=== PATIENT | female | born 1995 | race Two or more races ===

== ENCOUNTER 2018-03-15 15:40 | Inpatient (IN) | payer MEDICAID ==
[~2018-03-15] VITALS: Ht 144.8 cm; Wt 45.8 kg
[2018-03-15 15:50] VITALS: BP 131/72
--- NOTE | 2018-03-15 15:55 | NUR ---
RT NOTE: PATIENT RECEIVED TRACHED AND PLACED ON SPIRIT VENT. VENT SETTINGS PER MD ORDER. ALARMS SET AND VERIFIED. SUCTIONED AND LAVAGED SMALL AMOUNT OF THICK SECRETIONS. VENT PLUGGED INTO A RED OUTLET. AMBU BAG AT [facility].
[2018-03-15] MEDS ORDERED: ACET650S26 GT (15:59)
[2018-03-15] MEDS ORDERED: INSU100V11 SQ (15:59)
[2018-03-15] MEDS ORDERED: METO25TA20 GT (15:59)
[2018-03-15] MEDS ORDERED: NUT.237L30 GT (15:59)
[2018-03-15] MEDS ORDERED: ACET-868 GT ×2 (15:59)
[2018-03-15] MEDS ORDERED: SORB30SO2 GT (15:59)
[2018-03-15] MEDS ORDERED: ACET-2605 GT (15:59)
[2018-03-15] MEDS ORDERED: IPRA0.2S9 IH ×2 (15:59)
[2018-03-15] MEDS ORDERED: BLOO-668 IN (15:59)
[2018-03-15] MEDS ORDERED: ASCO500T9 GT (15:59)
[2018-03-15] MEDS ORDERED: ZINC220C8 GT (15:59)
[2018-03-15] MEDS ORDERED: GLYC1TAB5 GT (15:59)
[2018-03-15] MEDS ORDERED: MULT-24 GT (15:59)
[2018-03-15] MEDS ORDERED: VALP250S4 GT (15:59)
[2018-03-15] MEDS ORDERED: DOCU50LI GT (15:59)
[2018-03-15] MEDS ORDERED: SIME80TA15 GT (15:59)
[2018-03-15] MEDS ORDERED: PHEN20EL5 GT (15:59)
[2018-03-15] MEDS ORDERED: IV NS 0.9% 1,000 ML BAG IV ONE (16:00)
[2018-03-15 16:22] LABS: BASOPHILS % (AUTO) 0.5 % (0.0-2.0); EOSINOPHILS % (AUTO) 5.3 % (0.0-6.0); HEMATOCRIT 23 % (33-45); HEMOGLOBIN 7.3 g/dL (11.5-14.8); LYMPHOCYTES # (AUTO) 1.9 /CMM (0.8-4.8); MEAN CORPUSCULAR HEMOGLOBIN 30 PG (26.0-33.0); MEAN CORPUSCULAR HGB CONC 33 g/dl (31.0-36.0); MEAN CORPUSCULAR VOLUME 92 fL (82-100); MONOCYTES # (AUTO) 0.4 /CMM (0.1-1.30); MONOCYTES % (AUTO) 4.5 % (2.0-12.0); NEUTROPHILS # (AUTO) 5.5 /CMM (1.8-8.9); NEUTROPHILS % (AUTO) 66.7 % (43.0-81.0); PLATELET COUNT (AUTO) 314 /CMM (150-450); RDW COEFFICIENT OF VARIATION 18.6 (11.5-15.0); RED BLOOD CELL COUNT(AUTO) 2.44 MIL/uL (4.0-5.2); WHITE BLOOD COUNT (AUTO) 8.3 K/uL (4.3-11.0)
[2018-03-15 16:24] LABS: BILIRUBIN,URINE NEGATIVE (NEGATIVE); BLOOD, URINE TRACE Ery/uL (NEGATIVE); COLOR,URINE YELLOW (YELLOW); KETONES,URINE NEGATIVE (NEGATIVE); LEUKOCYTE ESTERASE ,URINE 1+ (NEGATIVE); NITRITE, URINE NEGATIVE (NEGATIVE); PROTEIN,URINE 2+ mg/dl (NEGATIVE); UGLUCOSE NEGATIVE (NEGATIVE); UROBILINOGEN,URINE 0.2 EU/dL (0.2)
--- NOTE | 2018-03-15 16:25 | NUR ---
SHONDA FROM [facility] FOR LOW HEMOGLOBIN 6.9. PT SEEN & EVAL'D BY DR. LEDBETTER. PT OPEN EYES, WILL MOVE HEAD WHEN CALLED BY HER FIRST NAME, PLACED ON VENT, NO RESP DISTRESS NOTED. SKIN WARM DRY & INTACT. PT STABLE NAD NOTED & WILL CONT TO MONITOR
[2018-03-15 16:26] LABS: APPEARANCE,URINE SLIGHTLY CLOUDY (CLEAR)
[2018-03-15 16:37] LABS: ALANINE AMINOTRANSFERASE 23 U/L (12-78); ALBUMIN 3.1 g/dL (3.4-5.0); ALKALINE PHOSPHATASE 61 U/L (46-116); ASPARTATE AMINOTRANSFERASE 16 U/L (15-37); BILIRUBIN,DIRECT 0.1 mg/dL (0.0-0.2); BILIRUBIN,TOTAL 0.3 mg/dL (0.2-1.0); CALCIUM, SERUM 9.5 mg/dL (8.5-10.1); CARBON DIOXIDE 30 mmol/L (21-32); CHLORIDE 98 mmol/L (98-107); CREATININE 1.9 mg/dL (0.6-1.3); GLUCOSE 111 mg/dL (74-106); POTASSIUM 3.6 mmol/L (3.5-5.1); SODIUM SERUM 135 mmol/L (136-145); UREA NITROGEN, BLOOD 41 mg/dL (7-18)
[2018-03-15 16:39] LABS: TROPONIN I < 0.017 ng/mL (0.00-0.056)
[2018-03-15 16:49] LABS: INR 0.99 (0.87-1.13)
[2018-03-15 16:57] LABS: BACTERIA,URINE Few /HPF (None Seen); RBC,URINE 0-2 /HPF (0-2); SQUAMOUS EPITHELIAL CELL,UR Few /HPF (None Seen)
--- NOTE | 2018-03-15 17:08 | NUR ---
CALLED [employer] TRANSMITTER TESTER WAS PAGED.
[2018-03-15 17:14] VITALS: BP 131/72
[2018-03-15] MEDS ORDERED: CEFTRIAXONE 1 G in IV D5W 50 ML IV ONE (17:30)
[2018-03-15 19:00] VITALS: BP 105/49
--- NOTE | 2018-03-15 19:00 | NUR ---
MANAGER TRAINING NOTES: PT WAS ADMITTED FROM ER WITH A DIAGNOSIS OF ACUTE ANEMIA. PT IS NON VERBAL BUT OPENS EYES. ON [facility] VENT, [place] 7, SATURATING WELL. NO SOB NOTED. ON TELE MONITOR SINUS TACHY HR 114BPM. NO FACIAL GRIMACING OR ANY SIGNS OF PAIN NOTED. VITAL SIGNS STABLE, BP 105/49, HR 114BPM, RR 20, TEMP 98.1. WILL ENDORSE TO CUTTING AND PRINTING MACHINE OPERATOR FOR CONTINUITY OF CARE.
--- NOTE | 2018-03-15 19:00 | NUR ---
NETWORK SECURITY ADMINISTRATOR NOTES: RECEIVED A CALL FROM LAB ([facility]IR[facility]) INFORMING THAT PT HAS AN ORDER FOR 1 UNIT PRBC, HOWEVER, PT HAS ANTIBODY AND LAB NEEDS TO SEND ADDITIONAL WORKUP TO [facility] TO IDENTIFY WHAT KIND OF ANTIBODY THE PT HAS. THUS, BLOOD PRODUCT WILL BE DELAYED. WILL ENDORSE TO FITTING ROOM ASSOCIATE RN
[2018-03-15] MEDS ORDERED: MAGNESIUM HYDROXIDE 30 ML UDC PO PRN (19:30)
[2018-03-15] MEDS ORDERED: MISCELLANEOUS MED 1 EA EA GT PRN (19:30)
[2018-03-15] MEDS ORDERED: MAG HYDROX/AL HYDROX/SIMETH 30 ML UDC PO PRN (19:30)
[2018-03-15] MEDS ORDERED: ACETAMINOPHEN 325 MG TABLET PO PRN ×2 (19:30)
[2018-03-15] MEDS ORDERED: ONDANSETRON HCL/PF 4 MG/2 ML VIAL IVP PRN (19:30)
[2018-03-15] MEDS ORDERED: HYDROCODONE/APAP 5/325MG 1 EACH TABLET PO PRN (19:30)
[2018-03-15] MEDS ORDERED: ZOLPIDEM TARTRATE 5 MG TABLET PO PRN (19:30)
[2018-03-15] MEDS ORDERED: IPRATROPIUM NEB FS 0.5 MG/2.5 ML AMPUL.NEB IH PRN (19:30)
[2018-03-15 20:00] VITALS: BP 104/50
--- NOTE | 2018-03-15 20:00 | NUR ---
RN INITIAL NOTES: RECEIVED PT IN BED. PT IS NON VERBAL BUT OPENS EYES. [facility], SATURATING WELL. NO SOB NOTED. ON TELE MONITOR SINUS TACHY HR 110- 140 BPM. IV IN LEFT LOWER LEG 318 S/L. G TUBE IN PLACE. NO DISTRESS NOTED. ALL SAFETY PRECAUTIONS TAKEN, BED IN LOWEST LOCKED POSITION, CALL LIGHT IN REACH ,WILL CARE OUT ALL ADMISSION ORDERS. WILL CONT TO MONITOR.
[2018-03-15] MEDS: IPRATROPIUM NEB FS 0.5 MG/2.5 ML AMPUL.NEB IH SCH (20:19)
[2018-03-15] MEDS: SIMETHICONE 80 MG TAB.CHEW GT SCH (21:46)
[2018-03-15] MEDS: VALPROIC ACID 250 MG/5 ML UDC GT SCH (21:46)
[2018-03-15] MEDS: METOPROLOL TARTRATE 25 MG TABLET GT SCH (21:47)
[2018-03-15] MEDS: PHENOBARBITAL 60 MG/15 ML UDC GT SCH (21:51)
[2018-03-15] MEDS: GLUCERNA 1.2 1,000 ML BOTTLE GT SCH (22:29)
[2018-03-15 23:10] LABS: BASOPHILS % (AUTO) 0.1 % (0.0-2.0); EOSINOPHILS % (AUTO) 4.4 % (0.0-6.0); HEMATOCRIT 22 % (33-45); HEMOGLOBIN 7.4 g/dL (11.5-14.8); LYMPHOCYTES # (AUTO) 1.7 /CMM (0.8-4.8); LYMPHOCYTES % (AUTO) 21.9 % (20.0-44.0); MEAN CORPUSCULAR HEMOGLOBIN 31 PG (26.0-33.0); MEAN CORPUSCULAR HGB CONC 34 g/dl (31.0-36.0); MEAN CORPUSCULAR VOLUME 93 fL (82-100); MONOCYTES # (AUTO) 0.4 /CMM (0.1-1.30); MONOCYTES % (AUTO) 5.1 % (2.0-12.0); NEUTROPHILS # (AUTO) 5.3 /CMM (1.8-8.9); NEUTROPHILS % (AUTO) 68.5 % (43.0-81.0); PLATELET COUNT (AUTO) 271 /CMM (150-450); RDW COEFFICIENT OF VARIATION 18.5 (11.5-15.0); RED BLOOD CELL COUNT(AUTO) 2.38 MIL/uL (4.0-5.2); WHITE BLOOD COUNT (AUTO) 7.8 K/uL (4.3-11.0)
[2018-03-16] VITALS (13 sets, daily range): BP systolic 94–108; BP diastolic 36–64
[2018-03-16] MEDS: IPRATROPIUM NEB FS 0.5 MG/2.5 ML AMPUL.NEB IH SCH ×4 (01:25→20:04)
[2018-03-16] MEDS: SIMETHICONE 80 MG TAB.CHEW GT SCH ×3 (05:13→21:04)
[2018-03-16] MEDS: BLOOD SUGAR DIAGNOSTIC 1 EACH STRIP IN SCH (05:19)
[2018-03-16 06:30] LABS: BASOPHILS % (AUTO) 0.5 % (0.0-2.0); EOSINOPHILS % (AUTO) 4.2 % (0.0-6.0); HEMATOCRIT 21 % (33-45); HEMOGLOBIN 7.1 g/dL (11.5-14.8); LYMPHOCYTES # (AUTO) 1.4 /CMM (0.8-4.8); LYMPHOCYTES % (AUTO) 19.4 % (20.0-44.0); MEAN CORPUSCULAR HEMOGLOBIN 32 PG (26.0-33.0); MEAN CORPUSCULAR HGB CONC 34 g/dl (31.0-36.0); MEAN CORPUSCULAR VOLUME 94 fL (82-100); MONOCYTES # (AUTO) 0.4 /CMM (0.1-1.30); MONOCYTES % (AUTO) 5.1 % (2.0-12.0); NEUTROPHILS % (AUTO) 70.8 % (43.0-81.0); PLATELET COUNT (AUTO) 275 /CMM (150-450); RDW COEFFICIENT OF VARIATION 18.8 (11.5-15.0); RED BLOOD CELL COUNT(AUTO) 2.24 MIL/uL (4.0-5.2); WHITE BLOOD COUNT (AUTO) 7.1 K/uL (4.3-11.0)
--- NOTE | 2018-03-16 06:43 | NUR ---
RN CLOSING NOTES: NO CHANGE IN PTS CONDITION OVER NIGHT. GT FEED INFUSING ORDERED. UNABLE TO TRANSFUSE 1 UNIT PRBC, ORDERED BECAUSE PT HAS ANTIBODY AND LAB SENT ADDITIONAL WORKUP TO [place] TO IDENTIFY WHAT KIND OF ANTIBODY THE PT HAS. THUS, BLOOD PRODUCT IS DELAYED. MD NOTIFIED OF THE DELAY. WILL ENDORSE TO AM SHIFT RN
[2018-03-16 06:49] LABS: CALCIUM, SERUM 8.9 mg/dL (8.5-10.1); CREATININE 1.8 mg/dL (0.6-1.3); MAGNESIUM 2.4 mg/dL (1.8-2.4); PHOSPHORUS 5.3 mg/dL (2.5-4.9); POTASSIUM 3.8 mmol/L (3.5-5.1)
--- NOTE | 2018-03-16 07:30 | NUR ---
STAFFING BRANCH MANAGER INITIAL NOTES RECEIVED PATIENT OBTUNDED IN BED, NO SIGNS OF DISTRESS, ON VENTILATOR SETTINGS ORDERED, 100% 02 SATURATION, ON TELE MONITORING ST, IN DIAPER, TURNED AND REPOSITIONED, GTUBE FEEDINGS ORDERED, NO RESIDUAL NOTED, HOB ELEVATED, IV LLE 18G, SL, CLEAN AND PATENT, AWAITING 1 UNIT PRBC TO TRANSFUSE, BED IN LOW AND LOCKED POSITION, CALL LIGHT WITHIN REACH, WILL CONTINUE TO MONITOR.
[2018-03-16] MEDS: SORBITOL SOLUTION 30 ML GT SCH (08:32)
[2018-03-16] MEDS: Z GUARD REMEDY 2 OZ OINT TP PRN (08:32)
[2018-03-16] MEDS: ZINC SULFATE 220 MG CAPSULE GT SCH (08:33)
[2018-03-16] MEDS: MULTIVITAMINS,THERAGRAN 1 UDTAB TABLET GT SCH (08:33)
[2018-03-16] MEDS: VALPROIC ACID 250 MG/5 ML UDC GT SCH ×2 (08:33→16:42)
[2018-03-16] MEDS: DOCUSATE SODIUM LIQ 100 MG/10 ML UDC GT SCH ×2 (08:33→16:43)
[2018-03-16] MEDS: ACETAMINOPHEN 650 MG/20.3 ML UDC GT SCH (08:33)
[2018-03-16] MEDS: ASCORBIC ACID 500 MG TABLET GT SCH (08:33)
[2018-03-16] MEDS: PHENOBARBITAL 60 MG/15 ML UDC GT SCH ×2 (08:33→16:42)
[2018-03-16] MEDS: GLYCOPYRROLATE 1 MG TABLET GT SCH ×3 (08:33→16:43)
[2018-03-16] MEDS: METOPROLOL TARTRATE 25 MG TABLET GT SCH ×2 (08:34→16:43)
--- NOTE | 2018-03-16 12:06 | NUR ---
HYDRAULICS ENGINEER NOTES PATIENT BLOOD TRANSFUSION STARTED AT THIS TIME, WILL CONTINUE TO MONITOR FOR ADVERSE REACTIONS.
--- NOTE | 2018-03-16 14:30 | NUR ---
RN CLINICAL NOTES PATIENTS BLOOD TRANSFUSION FINISHED, NO ADVERSE REACTIONS NOTED.
--- NOTE | 2018-03-16 16:21 | NUR ---
RT RECD PT TRACH'D INTACT AND SECURED ON MECH VENT JO-ANN ORDERED SETTINGS. VENT PLUGGED IN RED OUTLET ALARMS ON AND AUDIBLE, BAG AND MASK AT HOB TX GIVEN JO-ANN WELL NO ADVERSE REACTION NOTED ATT NO RESP DISTRESS THROUGHOUT SHIFT WILL CONTINUE TO MONITOR
--- NOTE | 2018-03-16 18:54 | NUR ---
WOOD TILE INSTALLATION HELPER END NOTES PATIENT IS RESTING IN BED, NO SIGNS OF DISTRESS, ALL NEEDS MET, TURNED AND REPOSITIONED, WILL ENDORSE TO INSPECTOR FIREARMS FOR CONTINUITY OF CARE.
--- NOTE | 2018-03-16 20:00 | NUR ---
PT REC'D TRACHED ON [facility] VENT ON SIMV MODE. NO RESP DISTRESS OR SOB NOTED. TRACH IS MIDLINE AND PATENT. SX'D FOR THICK YELLOW MOD AMT OF SECRETIONS. ALARMS ARE SET AND AUDIBLE. VENT PLUGGED INTO RED OUTLET. AMBU BAG BEDSIDE. Addendum: 03/17/18 at 0645 by MURIEL DIXON RT Amended: Links added.
--- NOTE | 2018-03-16 20:00 | NUR ---
RN INITIAL NOTES: RECEIVED PT IN BED. PT IS NON VERBAL BUT OPENS EYES. ON [facility] VENT, SATURATING WELL, . NO SOB NOTED. ON TELE MONITOR SINUS TACHY HR 112 BPM. IV IN LEFT LOWER LEG #18 S/L. G TUBE IN PLACE. NO DISTRESS NOTED. ALL SAFETY PRECAUTIONS TAKEN, BED IN LOWEST LOCKED POSITION, CALL LIGHT IN REACH. WILL CONT TO MONITOR.
[2018-03-17] VITALS (7 sets, daily range): BP systolic 95–124; BP diastolic 55–67
[2018-03-17] MEDS: IPRATROPIUM NEB FS 0.5 MG/2.5 ML AMPUL.NEB IH SCH ×4 (01:29→19:21)
[2018-03-17] MEDS: SIMETHICONE 80 MG TAB.CHEW GT SCH ×3 (05:12→20:57)
[2018-03-17] MEDS: BLOOD SUGAR DIAGNOSTIC 1 EACH STRIP IN SCH (05:13)
--- NOTE | 2018-03-17 06:44 | NUR ---
RN CLOSING NOTES: NO CHANGE IN PTS CONDITION OVER NIGHT. GT FEED INFUSING ORDERED. ALL DUE MEDS GIVEN. ALL NEEDS MET. SAFETY PRECAUTIONS TAKEN. PT SUCTIONED AND TURNED Q2. WILL ENDORSE TO AM SHIFT RN.
--- NOTE | 2018-03-17 07:25 | NUR ---
NON EMERGENCY SERVICES AMBULANCE DRIVER NOTE: RECEIVED PATIENT IN BED, ASLEEP, BUT WAS AROUSABLE WITH TACTILE STIMULI. RESPIRATION EVEN AND UNLABORED, TOLERATING THE CURRENT VENTILATOR SETTING SATURATING 100%. NO FACIAL GRIMACING NOTED. (L) LE IV LINE NOTED PATENT AND INTACT. ON SAMPLE SELECTOR, ST HR= 143. DR. JESSICA AWARE ABOUT IT. PATIENT HAS BP MEDICATIONS IN AM. HOB ELEVATED @35 DEGREE. GT FEEDING OF GLUCERNA 1.2 RUNNING @35ML/HR AND TOLERATING IT WELL. BED ALARMED AND LOCKED AT ALL TIMES. CALL LIGHT WITHIN REACH. NEEDS ANTICIPATED.
[2018-03-17 07:39] LABS: CALCIUM, SERUM 9.2 mg/dL (8.5-10.1); CREATININE 1.8 mg/dL (0.6-1.3); POTASSIUM 4.3 mmol/L (3.5-5.1)
[2018-03-17 08:14] LABS: BASOPHILS % (AUTO) 0.3 % (0.0-2.0); EOSINOPHILS % (AUTO) 1.5 % (0.0-6.0); HEMATOCRIT 26 % (33-45); HEMOGLOBIN 8.8 g/dL (11.5-14.8); LYMPHOCYTES # (AUTO) 1.4 /CMM (0.8-4.8); LYMPHOCYTES % (AUTO) 11.3 % (20.0-44.0); MEAN CORPUSCULAR HEMOGLOBIN 31 PG (26.0-33.0); MEAN CORPUSCULAR HGB CONC 34 g/dl (31.0-36.0); MEAN CORPUSCULAR VOLUME 93 fL (82-100); MONOCYTES # (AUTO) 0.5 /CMM (0.1-1.30); MONOCYTES % (AUTO) 3.7 % (2.0-12.0); NEUTROPHILS # (AUTO) 10.5 /CMM (1.8-8.9); NEUTROPHILS % (AUTO) 83.2 % (43.0-81.0); PLATELET COUNT (AUTO) 313 /CMM (150-450); RDW COEFFICIENT OF VARIATION 17.5 (11.5-15.0); RED BLOOD CELL COUNT(AUTO) 2.83 MIL/uL (4.0-5.2); WHITE BLOOD COUNT (AUTO) 12.6 K/uL (4.3-11.0)
[2018-03-17] MEDS: GLUCERNA 1.2 1,000 ML BOTTLE GT SCH (08:17)
[2018-03-17] MEDS: DOCUSATE SODIUM LIQ 100 MG/10 ML UDC GT SCH ×2 (08:24→16:08)
[2018-03-17] MEDS: GLYCOPYRROLATE 1 MG TABLET GT SCH ×3 (08:25→16:12)
[2018-03-17] MEDS: VALPROIC ACID 250 MG/5 ML UDC GT SCH ×2 (08:25→16:12)
[2018-03-17] MEDS: METOPROLOL TARTRATE 25 MG TABLET GT SCH ×2 (08:25→16:12)
[2018-03-17] MEDS: PHENOBARBITAL 60 MG/15 ML UDC GT SCH ×2 (08:25→16:11)
[2018-03-17] MEDS: ZINC SULFATE 220 MG CAPSULE GT SCH (08:26)
[2018-03-17] MEDS: ACETAMINOPHEN 650 MG/20.3 ML UDC GT SCH (08:26)
[2018-03-17] MEDS: MULTIVITAMINS,THERAGRAN 1 UDTAB TABLET GT SCH (08:26)
[2018-03-17] MEDS: ASCORBIC ACID 500 MG TABLET GT SCH (08:26)
[2018-03-17] MEDS: SORBITOL SOLUTION 30 ML GT SCH (08:31)
--- NOTE | 2018-03-17 11:00 | NUR ---
CASEY SAW OPERATOR NOTE: CALLED AND SPOKE WITH PATRIZIA, MOTHER AND MADE HER AWARE THAT PER DR. JESSICA, HE WANTED TO SEE THE BLOOD CULTURE RESULTS PRIOR TO PATIENT'S DISCHARGE. MOTHER UNDERSTOOD IT.
--- NOTE | 2018-03-17 12:35 | NUR ---
RANGE AIDE NOTE: SPOKE WITH DR. JESSICA AND MADE HIM AWARE ABOUT THE PATIENT'S TEST. PER MD, CANCEL THE ORDER. NOTED AND CARRIED OUT.
[2018-03-17 15:55] LABS: OCCULT BLOOD STOOL NEGATIVE (NEGATIVE)
[2018-03-17] MEDS: Z GUARD REMEDY 2 OZ OINT TP PRN (16:13)
--- NOTE | 2018-03-17 19:22 | NUR ---
SLEEVE SEPARATOR NOTE: PATIENT IN BED REMAINED QUIET AND AROUSABLE WITH TACTILE STIMULI. NO RESPIRATORY DISTRESS NOTED. REPORT GIVEN TO PM SHIFT NURSE FOR CONTINUITY OF CARE.
--- NOTE | 2018-03-17 20:11 | NUR ---
DRILLING PLANT OPERATOR NOTES RECEIVED PT ON BED. A/OX1 . [facility] SATURATING WELL. ON TELE MONITOR ST 105HR. NO RESPIRATORY DISTRESS NOTED. GTUBE FEEDING AT 35CC/HR NO RESIDUAL. IV ACCESS ON LEFT LOWER G18 PATENT AN INTACT TKO. HEAD OF BED ELEVATED. SIDE RAILS UP. CALL LIGHT WITHIN REACH. BED ALARM ON. WILL CONTINUE TO MONITOR CLOSELY.
[2018-03-18] VITALS: BP 104/55
[2018-03-18] MEDS: IPRATROPIUM NEB FS 0.5 MG/2.5 ML AMPUL.NEB IH SCH ×3 (01:14→13:54)
[2018-03-18 04:00] VITALS: BP 110/85
[2018-03-18] MEDS: SIMETHICONE 80 MG TAB.CHEW GT SCH ×2 (05:35→12:25)
[2018-03-18] MEDS: BLOOD SUGAR DIAGNOSTIC 1 EACH STRIP IN SCH (05:35)
--- NOTE | 2018-03-18 06:50 | NUR ---
TUNNEL KILN OPERATOR NOTES NO ACUTE CHANGES NOTE DURING THE SHIFT. PROVIDED COMFORT AND SAFETY. WILL ENDORSE TO THE AM NURSE FOR CONTINUITY OF CARE.
[2018-03-18 07:08] LABS: BASOPHILS % (AUTO) 0.2 % (0.0-2.0); EOSINOPHILS % (AUTO) 2.6 % (0.0-6.0); HEMATOCRIT 25 % (33-45); HEMOGLOBIN 8.4 g/dL (11.5-14.8); LYMPHOCYTES # (AUTO) 1.3 /CMM (0.8-4.8); LYMPHOCYTES % (AUTO) 14.7 % (20.0-44.0); MEAN CORPUSCULAR HEMOGLOBIN 31 PG (26.0-33.0); MEAN CORPUSCULAR HGB CONC 34 g/dl (31.0-36.0); MEAN CORPUSCULAR VOLUME 93 fL (82-100); MONOCYTES # (AUTO) 0.5 /CMM (0.1-1.30); MONOCYTES % (AUTO) 5.9 % (2.0-12.0); NEUTROPHILS % (AUTO) 76.6 % (43.0-81.0); PLATELET COUNT (AUTO) 257 /CMM (150-450); RDW COEFFICIENT OF VARIATION 18.1 (11.5-15.0); RED BLOOD CELL COUNT(AUTO) 2.69 MIL/uL (4.0-5.2); WHITE BLOOD COUNT (AUTO) 9.1 K/uL (4.3-11.0)
[2018-03-18 07:29] LABS: CALCIUM, SERUM 9.3 mg/dL (8.5-10.1); CREATININE 1.7 mg/dL (0.6-1.3)
[2018-03-18 08:00] VITALS: BP 102/63
[2018-03-18] MEDS: VALPROIC ACID 250 MG/5 ML UDC GT SCH (08:30)
[2018-03-18] MEDS: SORBITOL SOLUTION 30 ML GT SCH (08:30)
[2018-03-18] MEDS: ZINC SULFATE 220 MG CAPSULE GT SCH (08:30)
[2018-03-18] MEDS: DOCUSATE SODIUM LIQ 100 MG/10 ML UDC GT SCH (08:30)
[2018-03-18] MEDS: ACETAMINOPHEN 650 MG/20.3 ML UDC GT SCH (08:30)
[2018-03-18] MEDS: GLYCOPYRROLATE 1 MG TABLET GT SCH ×2 (08:30→12:26)
[2018-03-18] MEDS: ASCORBIC ACID 500 MG TABLET GT SCH (08:30)
[2018-03-18] MEDS: MULTIVITAMINS,THERAGRAN 1 UDTAB TABLET GT SCH (08:33)
[2018-03-18] MEDS: METOPROLOL TARTRATE 25 MG TABLET GT SCH (08:33)
[2018-03-18] MEDS: GLUCERNA 1.2 1,000 ML BOTTLE GT SCH (08:41)
[2018-03-18 12:00] VITALS: BP 90/63
[2018-03-18] MEDS: PHENOBARBITAL 60 MG/15 ML UDC GT SCH (12:25)
--- NOTE | 2018-03-18 14:40 | NUR ---
MS RN NOTE: CALLED AND SPOKE WITH JUAN MONCADA FROM [facility] AND GAVE REPORT REGARDING THE PATIENT'S RETURN TO THE FACILITY. PER PHOTORESIST PRINTER SEAN, THE EXPECTED TIME OF PICK-UP IS AT 3:30 PM. EXIT CARE WAS DONE. PATRIZIA, MOTHER WAS AWARE OF THE PATIENT'S DISCHARGE BACK TO THE FACILITY.
--- NOTE | 2018-03-18 16:20 | NUR ---
DIAMOND EXPERT NOTE: PATIENT WAS DISCHARGED TO [facility] AND PATIENT WAS ACCOMPANIED BY 2 INVESTMENT SPECIALIST AND 1 RT OF [facility] AMBULANCE TRANSPORTED VIA GURNEY. REPORT WAS GIVEN BY THE BEDSIDE. PATIENT ON STABLE CONDITION LATEST HEMOGLOBIN/HEMATOCRIT (8.4/25) RELAYED TO EMS AND RT. GT CLAMPED FOR TRANSPORT. CURRENT VENTILATOR SETTING WAS GIVEN. (L) LOWER EXTREMITY IV PERIPHERAL LINE WAS REMOVED AND APPLIED DRY GAUZE AND SECURED WITH TAPE. ALL PAPERWORK WAS RELEASED TO THE INVESTMENT SPECIALIST AND INFORMED THEM THAT PATIENT REPORT WAS GIVEN TO JUAN MONCADA FROM THE FACILITY AND PATIENT WILL BE GOING TO ROOM 21A. GT SITE PICTURE WAS TAKEN AND FILED ON THE CHART. GT AND TRACH SITE WAS CLEANSED AND DRESSING WAS CHANGED.
== END 2018-03-18 16:18 | DRG 469 ==
LOC: ER 15:42 → TELE1 17:23
PROVIDERS: ADMIT Family Medicine; ATTEND Family Medicine
PROC: 5A1945Z Respiratory Ventilation, 24-96 Consecutive Hours (ICD-10-PCS; principal; 2018-03-15)
PROC: 30233N1 Transfusion of Nonautologous Red Blood Cells into Peripheral Vein, Percutaneous Approach (ICD-10-PCS; principal; 2018-03-15)
DX: N17.0 Acute kidney failure with tubular necrosis (principal); Z99.11 Dependence on respirator [ventilator] status; G93.40 Encephalopathy, unspecified; J96.10 Chronic respiratory failure, unspecified whether with hypoxia or hypercapnia; Z93.0 Tracheostomy status; E11.22 Type 2 diabetes mellitus with diabetic chronic kidney disease; E44.1 Mild protein-calorie malnutrition; G80.9 Cerebral palsy, unspecified; Z88.5 Allergy status to narcotic agent; Z88.0 Allergy status to penicillin; H54.8 Legal blindness, as defined in USA; Z79.4 Long term (current) use of insulin; E11.65 Type 2 diabetes mellitus with hyperglycemia; Z79.899 Other long term (current) drug therapy; Z93.1 Gastrostomy status; G40.909 Epilepsy, unspecified, not intractable, without status epilepticus; I87.2 Venous insufficiency (chronic) (peripheral); D63.1 Anemia in chronic kidney disease; D62 Acute posthemorrhagic anemia; N18.9 Chronic kidney disease, unspecified
CPT/HCPCS: 31720; 36415; 71045-TC; 80048-TC; 80061-TC; 80076-TC; 81000-TC; 82272-TC; 82962-TC; 83605-TC; 83735-TC; 84100-TC; 84484-TC; 85025-TC; 85730-TC; 86850-TC; 86921-TC; 87040-TC; 87081-TC; 87086-TC; 94002-TC; 94003-TC; 94760-TC; A4606; J0696; J7030; J7040; J7060; P9016-BL; Z7610